=== PATIENT | female | born 1995 | race Caucasian/White ===

== ENCOUNTER 2019-01-02 10:33 | Emergency (ER) | payer MEDICAID, OTHER ==
[~2019-01-02] VITALS: Ht 157.5 cm; Wt 84.0 kg
[~2019-01-02 10:33] MED LIST: METH500T PO
[2019-01-02 10:49] VITALS: BP 137/59
[2019-01-02] MEDS ORDERED: IBUP-1985 PO (11:10)
== END 2019-01-02 12:07 | disposition home or self-care (01) ==
LOC: ER 10:35
DX: M25.512 Pain in left shoulder (principal); M79.18 Myalgia, other site; Z79.899 Other long term (current) drug therapy; X58.XXXA Exposure to other specified factors, initial encounter; Y93.89 Activity, other specified; Y92.89 Other specified places as the place of occurrence of the external cause; Y99.0 Civilian activity done for income or pay
CPT/HCPCS: 99282

== ENCOUNTER 2019-11-18 08:11 | Emergency (ER) | payer SELFPAY ==
[~2019-11-18] VITALS: Ht 162.6 cm; Wt 86.0 kg
[~2019-11-18 08:11] MED LIST changes: +IBUP-1985 PO
[2019-11-18 08:29] VITALS: BP 147/84
[2019-11-18] MEDS ORDERED: ondansetron 4mg rapidly disintigrating tab PO ONE (09:15)
== END 2019-11-18 09:16 | disposition home or self-care (01) ==
LOC: ER 08:11
DX: H61.22 Impacted cerumen, left ear (principal)
CPT/HCPCS: 69209; 99283

== ENCOUNTER 2023-11-24 07:29 | Emergency (ER) | payer BC ==
[~2023-11-24] VITALS: Ht 157.5 cm; Wt 87.3 kg
[2023-11-24 08:07] LABS: BILIRUBIN,URINE NEGATIVE (Neg); CLARITY,URINE SLIGHTLY CLOUDY (Clear); COLOR,URINE YELLOW (Yellow); GLUCOSE, URINE NEGATIVE (Neg); KETONES,URINE 15 mg/dl (Neg); LEUKOCYTE ESTERASE ,URINE NEGATIVE (Neg); NITRITES, URINE NEGATIVE (Neg); OCCULT BLOOD,URINE TRACE-INTACT (Neg); PROTEIN,URINE NEGATIVE (Neg); UROBILINOGEN,URINE 0.2 E.U/dL (0.2-1.0)
[2023-11-24 08:10] LABS: BASOPHILS % (AUTO) 0.2 % (0-1); EOSINOPHILS # (AUTO) 0.1 X10'3 (0-0.9); EOSINOPHILS % (AUTO) 1.6 % (0-6); HEMOGLOBIN 14.2 g/dl (12.0-16.0); LYMPHOCYTES # (AUTO) 1.7 X10'3 (1.1-4.8); LYMPHOCYTES % (AUTO) 21.1 % (21-51); MEAN CORPUSCULAR HEMOGLOBIN 29.2 PG (27.0-31.0); MEAN CORPUSCULAR HGB CONC 33.9 g/dL (33.0-36.5); MEAN CORPUSCULAR VOLUME 86.1 FL (78-98); MEAN PLATELET VOLUME 8.3 FL (7.4-10.4); MONOCYTES # (AUTO) 0.5 X10'3 (0-0.9); MONOCYTES % (AUTO) 6.7 % (2-12); NEUTROPHILS # (AUTO) 5.5 X10'3 (1.8-7.7); NEUTROPHILS % (AUTO) 70.4 % (42-75); PLATELET COUNT 225 X10'3 (140-440); RED BLOOD COUNT 4.88 X10'6 (4.20-5.60); RED CELL DISTRIBUTION WIDTH 13.4 % (11.5-14.5); WHITE BLOOD COUNT 7.8 X10'3 (4.5-11.0)
[2023-11-24 08:13] LABS: URINE HCG NEGATIVE (NEG)
[2023-11-24 08:14] LABS: UA COLLECTION TYPE CLN CATCH MIDSTREAM
[2023-11-24 08:15] LABS: BACTERIA,URINE 1+ /HPF (Neg); HYALINE CASTS 0-3 /LPF (NEGATIVE); MUCUS STRANDS MANY /LPF (Neg); RBC,URINE 0-2 /HPF (0-2); SQUAMOUS EPITHELIAL CELL,UR MANY /LPF (FEW); WBC,URINE 0-4 /HPF (0-4)
[2023-11-24 08:24] LABS: ALBUMIN 3.8 G/DL (3.4-5.0); ANION GAP 11 (8-16); BLOOD UREA NITROGEN 13 MG/DL (7-18); BUN/CREATININE RATIO 16.9 (10.0-20.0); CALCIUM 8.5 MG/DL (8.5-10.1); CHLORIDE 105 MMOL/L (99-107); CREATININE 0.77 MG/DL (0.40-0.90); GLUCOSE 100 MG/DL (70-104); LIPASE 20 U/L (16-77); SODIUM 140 MMOL/L (135-145); TOTAL CARBON DIOXIDE 24.4 MMOL/L (24-32); eCRCL 85 ML/MIN; eGFR 89 ML/MIN
[2023-11-24] MEDS: ondansetron/PF 4mg/2ml inj IV ONE (08:25)
[2023-11-24] MEDS: normal saline 1000ML IV soln IVB ONE (08:25)
[2023-11-24] MEDS: morphine 4 MG/ML inj SYRINge IV PRN (09:31)
[2023-11-24] MEDS ORDERED: HYDR-3965 PO (13:31)
[2023-11-24 14:08] VITALS: BP 121/78; PULSE 59; RESP 16; TEMP 98.6; O2SAT 100
== END 2023-11-24 14:09 | disposition home or self-care (01) ==
LOC: ER 07:30
DX: N83.202 Unspecified ovarian cyst, left side (principal); Z79.1 Long term (current) use of non-steroidal anti-inflammatories (NSAID)
CPT/HCPCS: 36415; 74176; 76830; 76856; 80048; 81001; 81025; 83690; 85025; 93976; 96361; 96374; 96375; 99285; J2270; J2405; J7030